=== PATIENT | male | born 1980 | race African-American/Black ===

== ENCOUNTER 2016-11-24 14:32 | Emergency (ER) | payer OTHER ==
[~2016-11-24] VITALS: Ht 180.3 cm; Wt 86.2 kg
[2016-11-24 15:05] VITALS: BP 136/81
[2016-11-24] MEDS ORDERED: IBUPROFEN 800 MG TABLET. PO ONE (15:30)
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
== END 2016-11-24 15:47 | disposition home or self-care (01) ==
LOC: ER 14:32
DX: S16.1XXA Strain of muscle, fascia and tendon at neck level, initial encounter (principal); F12.10 Cannabis abuse, uncomplicated; V49.40XA Driver injured in collision with unspecified motor vehicles in traffic accident, initial encounter; Y93.I9 Activity, other involving external motion; Y92.410 Unspecified street and highway as the place of occurrence of the external cause; Y99.8 Other external cause status
CPT/HCPCS: 99282

== ENCOUNTER → 2016-12-09 | Outpatient (CLI) | payer OTHER ==
[2016-11-24 15:45] VITALS: BP 126/73
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
== END | disposition home or self-care (01) ==
LOC: RAD 09:10
PROVIDERS: ATTEND Family Medicine
DX: J44.9 Chronic obstructive pulmonary disease, unspecified (principal)
CPT/HCPCS: 71020

== ENCOUNTER 2020-03-02 09:56 | Emergency (ER) | payer MEDICAID, OTHER ==
[~2020-03-02] VITALS: Ht 180.3 cm; Wt 68.1 kg
[2020-03-02 10:06] VITALS: BP 127/87
[2020-03-02] MEDS ORDERED: diphenhydrAMINE 50 MG/ML VIAL IM ONE (11:00)
[2020-03-02] MEDS ORDERED: methylPREDNISolone SOD SUCC PF 125 MG/2 ML VIAL. IM ONE (11:00)
[2020-03-02] MEDS ORDERED: PRED20TA PO (11:01)
[2020-03-02] MEDS ORDERED: DIPH25CA58 PO (11:01)
[2020-03-02] MEDS ORDERED: PERM60CR11 TP (11:01)
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
== END 2020-03-02 11:41 | disposition home or self-care (01) ==
LOC: ER 09:56
DX: S60.562A Insect bite (nonvenomous) of left hand, initial encounter (principal); S60.561A Insect bite (nonvenomous) of right hand, initial encounter; F17.200 Nicotine dependence, unspecified, uncomplicated; W57.XXXA Bitten or stung by nonvenomous insect and other nonvenomous arthropods, initial encounter; Y93.89 Activity, other specified; Y92.89 Other specified places as the place of occurrence of the external cause; Y99.8 Other external cause status
CPT/HCPCS: 96372; 99284; J1200; J2930

== ENCOUNTER 2020-06-19 12:24 | Emergency (ER) | payer OTHER, MEDICAID ==
[~2020-06-19] VITALS: Ht 180.3 cm; Wt 72.0 kg
[~2020-06-19 12:24] MED LIST: DIPH25CA58 PO; PERM60CR11 TP; PRED20TA PO
[2020-06-19] MEDS ORDERED: NEOMY/BACITR/POLYMYXIN OINT PACKET. TP ONE (12:45)
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
[2020-06-19] MEDS ORDERED: CYCL10TA2 PO (14:47)
[2020-06-19] MEDS ORDERED: NAPR500T8 PO (14:47)
--- NOTE | 2020-06-19 15:06 | RAD ---
EXAM: 1. Left forearm 2 views. 2. Left wrist 3 views. HISTORY: Pain after injury. COMPARISON: None. FINDINGS: There is mild soft tissue swelling dorsally at the wrist. No fractures are identified throughout. Joint spaces and alignment at the wrist appear maintained. 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 IMPRESSION: 1. No fracture. 2. 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 Electronically signed by: Hui Mcfarland MD (06/19/2020 3:04 PM) [id number]
== END 2020-06-19 15:21 | disposition home or self-care (01) ==
LOC: ER 12:52
DX: S16.1XXA Strain of muscle, fascia and tendon at neck level, initial encounter (principal); S50.812A Abrasion of left forearm, initial encounter; R51 Headache; R60.0 Localized edema; F17.200 Nicotine dependence, unspecified, uncomplicated; F12.90 Cannabis use, unspecified, uncomplicated; V49.9XXA Car occupant (driver) (passenger) injured in unspecified traffic accident, initial encounter; Y93.89 Activity, other specified; Y92.413 State road as the place of occurrence of the external cause; Y99.8 Other external cause status
CPT/HCPCS: 70450; 72125; 73090; 73110; 99285

== ENCOUNTER 2021-12-23 11:54 | Emergency (ER) | payer OTHER, MEDICAID ==
[~2021-12-23] VITALS: Ht 180.3 cm; Wt 68.1 kg
[~2021-12-23 11:54] MED LIST changes: +CYCL10TA19 PO; +NAPR500T8 PO
--- NOTE | 2021-12-23 13:56 | RAD ---
EXAM: XR HAND_LEFT 3 VIEWS 12/23/2021 1:29 PM CLINICAL INDICATION: Pain and swelling COMPARISON: Right wrist 06/19/2020 TECHNIQUE: PA, oblique, and lateral views of the left hand FINDINGS: No acute fracture. Alignment is normal. Joint spaces are maintained. There are tiny osteop hyte that the second MCP joint and first CMC joint. No focal soft tissue abnormality. IMPRESSION: No acute osseous abnormality. Electronically signed by: Kiki Braswell MD (12/23/2021 1:53 PM) [id number]
[2021-12-23] MEDS ORDERED: IBUP-1060 PO (14:59)
[2021-12-23] MEDS ORDERED: [UNRECOGNIZED DRUG - CODE] TP (14:59)
--- NOTE | 2021-12-23 14:59 | PHYS DOC ---
Past Medical History Past Medical History: No Pertinent History (JUAN SCRUGGS) Past Surgical History: No Surgical History (JUAN SCRUGGS) Smoking Status: Current Every Day Smoker Alcohol Use: None Drug Use: Marijuana (JUAN SCRUGGS) General Adult EDM: Chief Complaint: HAND PROBLEM HPI: HPI: Patient is a 41 year old male who presents with left hand pain after cold exposure yesterday. Patient states that initially, both hands were in pain due to the cold. When he went back inside and rewarms his hands, he reports intense pain in his left hand with residual swelling today. Patient's family member at bedside is concerned for intermittent "confusion and hallucination." Patient reports he does smoke crack cocaine with his friends. Patient denies trauma or other injury. He has not had his tetanus vaccine updated in the past 5 years. (JUAN SCRUGGS) Review of Systems: Review of Systems: ROS negative or noncontributory except as mentioned in HPI. (JUAN SCRUGGS) Heart Score: C/O Chest Pain: No (JUAN SCRUGGS) Allergies: Allergies: Allergies Coded Allergies Type Severity Reaction Last Updated Verified No Known Drug Allergies 11/24/16 No (JUAN SCRUGGS) Physical Exam: PE: Constitutional: Well developed, well nourished, no acute distress, non-toxic appearance, disheveled. HENT: Normocephalic, atraumatic, bilateral external ears normal, nose normal. Eyes: EOMI, conjunctiva normal, no discharge. Neck: Normal range of motion, no stridor. Skin: Left hand skin is extremely dry with some areas of skin lifting without bullae formation, erythematous without induration or fluctuance. Skin otherwise warm, dry, no erythema, no rash. Back: No tenderness, no CVA tenderness. Extremities: Left hand exquisitely tender to touch. Extremities otherwise no tenderness, no cyanosis, no clubbing, ROM intact, no edema, distal pulses 2+ and symmetrical. Neurologic: Alert and oriented x4, no focal deficits noted. (JUAN SCRUGGS) Current Patient Data: Vital Signs: Vital Signs Date Time Temp Pulse Resp B/P (MAP) Pulse Ox O2 Delivery O2 Flow Rate FiO2 12/23/21 15:27 88 14 128/83 (98) 97 12/23/21 13:07 98.4 101 16 144/108 (120) 98 98.4 (JUAN SCRUGGS) Radiology/Procedures: Radiology/Procedures: PROCEDURE: HAND LEFT 3V EXAM: XR HAND_LEFT 3 VIEWS 12/23/2021 1:29 PM CLINICAL INDICATION: Pain and swelling COMPARISON: Right wrist 06/19/2020 TECHNIQUE: PA, oblique, and lateral views of the left hand FINDINGS: No acute fracture. Alignment is normal. Joint spaces are maintained. There are tiny osteophyte that the second MCP joint and first CMC joint. No focal soft tissue abnormality. IMPRESSION: No acute osseous abnormality. Electronically signed by: Kiki Braswell MD (12/23/2021 1:53 PM) [id number] (JUAN SCRUGGS) Course & Med Decision Making: Course & Med Decision Making Pertinent Labs and Imaging studies reviewed. (See chart for details) Patient is a 41-year-old male who presents with right hand swelling and pain. Patient reports he was outside in the cold trying to close his trunk and the pain began. History and exam consistent with frostnip. Work-up today will include x-ray of hand to exclude any other acute bony injury. Tetanus vaccination will be administered today. Patient was informed of findings and supportive treatment measures. Return precautions were provided. He understands and is agreeable to discharge plan. (JUAN SCRUGGS) Dragon Disclaimer: Dragon Disclaimer: This electronic medical record was generated, in whole or in part, using a voice recognition dictation system. (JUAN SCRUGGS) Departure Departure Impression: Primary Impression: Frostnip Qualified Codes: T33.90XA - Superficial frostbite of unspecified sites, initial encounter Additional Impression: Cocaine use disorder Disposition: HOME / SELF CARE / HOMELESS Condition: STABLE Referrals: TIFFANY OSMAN MD (PCP) Patient Instructions: Tessa, [id number] Additional Instructions: EMERGENCY DEPARTMENT GENERAL DISCHARGE INSTRUCTIONS Thank you for coming to [facility] Emergency Department (ED) today and trusting us with you care. We trust that you had a positive experien ce in our Emergency Department. If you wish to speak to the department management, you may call the director at . YOUR FOLLOW UP INSTRUCTIONS ARE FOLLOWS: 1. Follow up with your primary care doctor. If you do not have a primary doctor, please ask for a resource list of physicians or clinics that may be able to assist you with follow up care. 2. The emergency provider has interpreted your imaging studies, if any were ordered. The radiology reservations specialist also reviewed them. If there is a change in the findings, you will be notified in 48 hours when at all possible. 3. If a lab test or culture has been done, your results will be reviewed and you will be notified if you need a change in treatment. 4. Follow instructions verbalized to you and refer to the printouts if needed. ADDITIONAL INSTRUCTIONS AND INFORMATION: 1. Your care today has been supervised by a physician who is specially trained in emergency care. Many problems require more than one evaluation for a complete diagnosis and treatment. We recommend that you schedule your follow up appointment as recommended to ensure complete treatment of you illness or injury. If you are unable to obtain follow up care and continue to have a problem, or if your condition worsens, we recommend that you return to the ED. 2. We are not able to safely determine your condition over the phone nor are we able to give sound medical advice over the phone. For these safety reasons, if you call for medical advice we will ask you to come to the ED for further evaluation. 3. If you have any questions regarding these discharge instructions please call the ED at . SAFETY INFORMATION: In the interest of safety, wellness, and injury prevention; we encourage you to wear your seat belt, if you smoke; quite smoking, and we encourage family to use a protective helmet for bicycling and other sporting events that present an increased risk for head injury. IF YOUR SYMPTOMS WORSEN OR NEW SYMPTOMS DEVELOP, OR YOU HAVE CONCERNS ABOUT YOUR CONDITION; OR IF YOUR CONDITION WORSENS WHILE YOU ARE WAITING FOR YOUR FOLLOW UP APPOINTMENT; EITHER CONTACT YOUR PRIMARY CARE DOCTOR, THE PHYSICIAN WHOSE NAME AND NUMBER YOU WERE GIVEN, OR RETURN TO THE ED IMMEDIATELY. Scripts Aloe Vera (ALOE VERA) 118 Gm Cream..g. 118 GM TP PRN PRN for DRY SKIN / SCALING, #1 BOTTLE Prov: JUAN SCRUGGS 12/23/21 Ibuprofen (IBUPROFEN) 800 Mg Tablet 800 MG PO PRN Q6HRS PRN for INFLAMMATION, #20 TAB Prov: JUAN SCRUGGS 12/23/21 Attending Co-Sign The patient was seen and interviewed as well as examined at the bedside. The chart was reviewed. The case was discussed. Agree with the plan of care. (NADIA LUZ DO) JUAN SCRUGGS Dec 23, 2021 14:59 NADIA LUZ DO Dec 23, 2021 15:54
[2021-12-23] MEDS ORDERED: DIPHTH,PERTUSS(ACELL),TET TOX 0.5 ML DISP.SYRIN. VAX IM ONE (15:00)
[2021-12-23 15:27] VITALS: BP 128/83
== END 2021-12-23 15:27 | disposition home or self-care (01) ==
LOC: ER 11:54
DX: T33.522A Superficial frostbite of left hand, initial encounter (principal); R41.0 Disorientation, unspecified; F17.200 Nicotine dependence, unspecified, uncomplicated; X31.XXXA Exposure to excessive natural cold, initial encounter; Y93.89 Activity, other specified; Y92.89 Other specified places as the place of occurrence of the external cause; Y99.8 Other external cause status
CPT/HCPCS: 73130; 90471; 90715; 99283-25